=== PATIENT | female | born 1975 | race Caucasian/White ===

== ENCOUNTER 2019-03-01 22:29 | Emergency (ER) | payer OTHER, MEDICAID, SELFPAY ==
[2019-03-01 22:35] VITALS: BP 114/70; PULSE 80; RESP 18; TEMP 36.5; O2SAT 100; BMI 23.7
--- NOTE | 2019-03-01 22:38 | DI.RAD.S_ITS ---
PROCEDURE: XR HAND RT MIN 3V INDICATIONS: hand injury TECHNIQUE: 3 views of the hand(s) acquired. COMPARISON: None. FINDINGS: Bones: No acute fractures or dislocations. Chronic fifth metacarpal fracture which is healed in deformity. Carpal bones are normally aligned. No suspicious bony lesions. Soft tissues: No suspicious soft tissue calcifications. IMPRESSION: No acute fracture. No acute osseous lesion. If symptoms and/or clinical suspicion for pathology persists, further assessment with repeat radiographs (7-10 days) or advanced imaging (e.g. CT, MRI or bone scan) may be helpful. Dictated by: Monisha Alcantara MD, PhD on 03/02/2019 at 8:30 Approved by: Monisha Alcantara MD, PhD on 03/02/2019 at 8:31
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
[2019-03-02 01:10] LABS: RBC Urine None Seen (0-5/HPF)
[2019-03-02] MEDS: NITROFURANTOIN 100MG PREPACK 1 BOTTLE MISC (01:12)
[2019-03-02 01:21] LABS: Bacteria Urine Moderate (10-30); Culture Indicated Urine Specimen Cultured; Squamous Epithelial Cell Urine 1-5 /HPF (0-5/HPF); WBC Urine 1-5/HPF (0-5/HPF)
== END 2019-03-02 01:18 | disposition home or self-care (01) ==
PROVIDERS: Emergency Provider Emergency Medicine
DX: S60.221A Contusion of right hand, initial encounter (principal); N39.0 Urinary tract infection, site not specified
CPT/HCPCS: 73130; 81003; 81015; 81025; 87077; 87086; 87186; 99282; 99283